=== PATIENT | female | born 1970 | race Caucasian/White ===

== ENCOUNTER → 2017-05-29 09:57 | Outpatient (CLI) | payer OTHER, SELFPAY ==
--- NOTE | 2017-05-29 09:59 | EKG12_ITS ---
Test Reason : CHEST PAIN Blood Pressure : / mmHG Vent. Rate : 082 BPM Atrial Rate : 082 BPM P-R Int : 146 ms QRS Dur : 082 ms QT Int : 370 ms P-R-T Axes : 050 015 009 degrees QTc Int : 432 ms Normal sinus rhythm Normal ECG Confirmed by ABDIRIZAK DAS MD ([id number]), editorial project manager SOFI SHAW ([id number] on 06/01/2017 1:49:01 PM Referred By: Susi Booth Confirmed By:ABDIRIZAK DAS MD
[2017-05-29 11:56] LABS: Hematocrit 42.6 % (37-47); Hemoglobin 13.6 g/dl (12.0-15.0); Mean Corp Hgb Conc 31.9 g/gl (32-36); Mean Corpuscular Hgb 29.2 pg (27.0-32.0); Mean Corpuscular Volume 91.6 fL (81-99); Mean Platelet Vol. 9.3 fl (6.2-12.0); Platelet Count 377 K/mm3 (150-450); RBC Distribution Width CV 13.3 % (11.6-14.6); RBC Distribution Width SD 43.7 fl (35.1-43.9); Red Blood Count 4.65 M/mm3 (4.2-5.4); White Blood Count 7.1 K/mm3 (4.4-11.0)
[2017-05-29 11:58] LABS: Scan Indicated on CBC? Y/N NO
[2017-05-29 12:32] LABS: ALB/GLOB Ratio 0.8 RATIO (0.9-2.4); AST(SGOT) 14 U/L (15-37); Alanine Aminotransfer ALT/SGPT 24 U/L (13-56); Albumin, Serum 3.7 g/dL (3.2-5.0); Alkaline Phosphatase 92 U/L (45-117); Anion Gap 6 (5-15); BUN 8 mg/dL (7-18); BUN/Creat Ratio 10.3 RATIO (10-20); Calcium,Total 8.8 mg/dL (8.5-10.1); Chloride 102 mmol/L (98-107); Creatinine, Serum 0.78 mg/dL (0.55-1.02); EST Glomerular Filtration Rate 84 mL/min (>60); Est Glom Filt Rate - Afr Amer 102 mL/min (>60); Globulin 4.5 g/dL (2.2-4.2); Glucose 87 mg/dL (74-106); Potassium 3.8 mmol/L (3.5-5.1); Protein, Total 8.2 g/dL (6.4-8.2); Sodium Level 138 mmol/L (136-145)
== END ==
PROVIDERS: Family Provider Nurse Practitioner Family; PCP Nurse Practitioner Family; Visit Provider Nurse Practitioner Family
DX: R07.9 Chest pain, unspecified (principal)
CPT/HCPCS: 36415; 80053; 84484; 85027; 93005

== ENCOUNTER → 2017-06-25 11:27 | Outpatient (CLI) | payer OTHER, SELFPAY ==
--- NOTE | 2017-06-25 12:40 | STRESSREP ---
Stress Test Report Treadmill EKG: Resting EKG: Normal sinus rhythm, normal axis, normal intervals, no evidence of previous myocardial infarction. Treadmill EKG: The patient exercise according to Prashanth protocol for 9 minutes and 0 seconds achieving a maximum workload of 10.1 METS. Resting heart rate was initially 76 beats a minute peri to maximum 162 beats a minute which represents 93% of the maximal age-predicted heart rate. Resting blood pressure is 118/80, and peri to maximum of 160/68. Test was terminated due to leg discomfort. During exercise patient's heart rate increased as expected. Patient had no dynamic EKG changes to suggest ischemia. No arrhythmias noted. Conclusions: Normal adequate treadmill EKG. Negative for ischemia by EKG criteria. No anginal symptoms noted. No arrhythmias noted. Average exercise capacity for age. Appropriate blood pressure response to exercise. Test terminated due to leg discomfort. No complications.
== END ==
PROVIDERS: Family Provider Nurse Practitioner Family; PCP Nurse Practitioner Family; Visit Provider Nurse Practitioner Family
DX: R07.9 Chest pain, unspecified (principal)
CPT/HCPCS: 93017

== ENCOUNTER → 2018-04-09 08:07 | Outpatient (CLI) | payer OTHER, SELFPAY ==
[2018-04-09 10:14] LABS: Hematocrit 41.6 % (37-47); Hemoglobin 13.5 g/dl (12.0-15.0); Mean Corp Hgb Conc 32.5 g/gl (32-36); Mean Corpuscular Hgb 30.2 pg (27.0-32.0); Mean Corpuscular Volume 93.1 fL (81-99); Platelet Count 307 K/mm3 (150-450); RBC Distribution Width CV 13.6 % (11.6-14.6); RBC Distribution Width SD 45.2 fl (35.1-43.9); Red Blood Count 4.47 M/mm3 (4.2-5.4); White Blood Count 5.7 K/mm3 (4.4-11.0)
[2018-04-09 10:18] LABS: Scan Indicated on CBC? Y/N NO
[2018-04-09 10:33] LABS: ALB/GLOB Ratio 0.9 RATIO (0.9-2.4); AST(SGOT) 16 U/L (15-37); Alanine Aminotransfer ALT/SGPT 29 U/L (13-56); Albumin, Serum 3.5 g/dL (3.2-5.0); Alkaline Phosphatase 73 U/L (45-117); Anion Gap 10 (5-15); BUN 13 mg/dL (7-18); BUN/Creat Ratio 17.3 RATIO (10-20); Chloride 105 mmol/L (98-107); Cholesterol 223 mg/dL (200); Creatinine, Serum 0.75 mg/dL (0.55-1.02); EST Glomerular Filtration Rate 87 mL/min (>60); Est Glom Filt Rate - Afr Amer 106 mL/min (>60); Globulin 4.1 g/dL (2.2-4.2); Glucose 90 mg/dL (74-106); High Density Lipoprotein 68 mg/dL; Potassium 4.3 mmol/L (3.5-5.1); Protein, Total 7.6 g/dL (6.4-8.2); Sodium Level 141 mmol/L (136-145); Triglycerides 105 mg/dL; Very Low Density Lipoprotein 21 mg/dL (5-40)
== END ==
PROVIDERS: Family Provider Nurse Practitioner Family; PCP Nurse Practitioner Family; Referring Provider Nurse Practitioner Family; Visit Provider Nurse Practitioner Family
DX: E78.5 Hyperlipidemia, unspecified (principal); I10 Essential (primary) hypertension
CPT/HCPCS: 36415; 80053; 80061; 85027

== ENCOUNTER → 2019-02-26 09:08 | Outpatient (CLI) | payer OTHER, SELFPAY ==
[2019-02-26 10:35] LABS: Hematocrit 39.6 % (37-47); Hemoglobin 12.8 g/dL (12.0-15.0); Mean Corp Hgb Conc 32.3 g/dL (32-36); Mean Corpuscular Hgb 29.8 pg (27.0-32.0); Mean Corpuscular Volume 92.1 fL (81-99); Mean Platelet Vol. 10.1 fl (6.2-12.0); Platelet Count 289 K/mm3 (150-450); RBC Distribution Width CV 12.6 % (11.6-14.6); RBC Distribution Width SD 42.6 fl (35.1-43.9); White Blood Count 5.9 K/mm3 (4.4-11.0)
[2019-02-26 11:07] LABS: ALB/GLOB Ratio 0.9 RATIO (0.9-2.4); AST(SGOT) 15 U/L (15-37); Alanine Aminotransfer ALT/SGPT 20 U/L (13-56); Albumin, Serum 3.4 g/dL (3.2-5.0); Alkaline Phosphatase 78 U/L (45-117); Anion Gap 5 (5-15); BUN 11 mg/dL (7-18); BUN/Creat Ratio 14.3 RATIO (10-20); Calcium,Total 9.1 mg/dL (8.5-10.1); Chloride 110 mmol/L (98-107); Cholesterol 214 mg/dL (200); Creatinine, Serum 0.77 mg/dL (0.55-1.02); EST Glomerular Filtration Rate 85 mL/min (>60); Est Glom Filt Rate - Afr Amer 103 mL/min (>60); Globulin 3.9 g/dL (2.2-4.2); Glucose 79 mg/dL (74-106); High Density Lipoprotein 63 mg/dL; Potassium 4.2 mmol/L (3.5-5.1); Protein, Total 7.3 g/dL (6.4-8.2); Sodium Level 143 mmol/L (136-145); Triglycerides 135 mg/dL; Very Low Density Lipoprotein 27 mg/dL (5-40)
== END ==
PROVIDERS: Family Provider Nurse Practitioner Family; PCP Nurse Practitioner Family; Referring Provider Nurse Practitioner Family; Visit Provider Nurse Practitioner Family
DX: Z00.00 Encounter for general adult medical examination without abnormal findings (principal); I10 Essential (primary) hypertension; E66.9 Obesity, unspecified; E78.5 Hyperlipidemia, unspecified
CPT/HCPCS: 36415; 80053; 80061; 85027

== ENCOUNTER → 2020-03-17 09:42 | Outpatient (CLI) | payer OTHER, SELFPAY ==
[2020-03-17 10:12] LABS: Hematocrit 41.3 % (37-47); Hemoglobin 13.1 g/dL (12.0-15.0); Mean Corp Hgb Conc 31.7 g/dL (32-36); Mean Corpuscular Hgb 29.2 pg (27.0-32.0); Mean Platelet Vol. 9.4 fl (6.2-12.0); Platelet Count 308 K/mm3 (150-450); RBC Distribution Width SD 44.2 fl (35.1-43.9); Red Blood Count 4.49 M/mm3 (4.2-5.4); White Blood Count 5.3 K/mm3 (4.4-11.0)
[2020-03-17 10:50] LABS: ALB/GLOB Ratio 0.9 RATIO (0.9-2.4); AST(SGOT) 15 U/L (15-37); Alanine Aminotransfer ALT/SGPT 25 U/L (13-56); Albumin, Serum 3.8 g/dL (3.2-5.0); Alkaline Phosphatase 107 U/L (45-117); Anion Gap 4 (5-15); BUN 11 mg/dL (7-18); BUN/Creat Ratio 14.3 RATIO (10-20); Chloride 108 mmol/L (98-107); Cholesterol 245 mg/dL (200); Creatinine, Serum 0.77 mg/dL (0.55-1.02); EST Glomerular Filtration Rate 84 mL/min (>60); Est Glom Filt Rate - Afr Amer 102 mL/min (>60); Globulin 4.2 g/dL (2.2-4.2); Glucose 84 mg/dL (74-106); High Density Lipoprotein 82 mg/dL; Potassium 4.3 mmol/L (3.5-5.1); Sodium Level 142 mmol/L (136-145); Triglycerides 116 mg/dL; Very Low Density Lipoprotein 23 mg/dL (5-40)
== END ==
PROVIDERS: PCP Nurse Practitioner Family; Referring Provider Nurse Practitioner Family; Visit Provider Nurse Practitioner Family
DX: Z00.00 Encounter for general adult medical examination without abnormal findings (principal); I10 Essential (primary) hypertension; E66.9 Obesity, unspecified
CPT/HCPCS: 36415; 80053; 80061; 85027

== ENCOUNTER → 2021-01-15 12:12 | Outpatient (CLI) | payer OTHER, SELFPAY ==
--- NOTE | 2021-01-15 12:15 | RAD_ITS ---
STUDY: X-RAY - RIGHT KNEE REASON FOR EXAM: Anterior right knee pain, strain. TECHNIQUE: 4 view(s) of the knee. COMPARISON: None. FINDINGS: There is osteopenia. Normal visualized distal femur. Normal visualized proximal tibia and fibula. Normal proximal tibiofibular articulation. Normal medial femorotibial compartment. Normal lateral femorotibial compartment. There is mild joint space narrowing of the patellofemoral articulation. The soft tissue structures are unremarkable. RAD/Knee 4 or More Views IMPRESSION: Mild patellofemoral arthrosis. Electronically Signed: Alden He MD at 13:52 EST Tel , Service support ,
== END ==
PROVIDERS: PCP Nurse Practitioner Family; Referring Provider Nurse Practitioner Family; Visit Provider Nurse Practitioner Family
DX: M25.561 Pain in right knee (principal)
CPT/HCPCS: 73564

== ENCOUNTER → 2021-02-05 15:30 | Outpatient (CLI) | payer OTHER, SELFPAY ==
--- NOTE | 2021-02-05 15:31 | MRI_ITS ---
STUDY: MRI RIGHT KNEE REASON FOR EXAM: Female, 50 years old. Very limited range of motion in right knee x 1.5 months. Stabbing pain along lateral side of right knee. TECHNIQUE: Standardized fat and water weighted pulse sequences were obtained in all 3 orthogonal planes. COMPARISON: Right knee x-ray dated January 13, 2021 FINDINGS: Normal medial meniscus. There is diffuse, less than 50% thickness articular cartilage loss of the medial femorotibial compartment. Normal medial femoral condyle and tibial plateau. Normal medial collateral ligamentous complex (MCL). Normal distal semimembranosus, gracilis and semitendinosus tendons. Normal lateral meniscus. Normal hyaline cartilage of the lateral femorotibial compartment. Normal lateral tibial plateau. Normal proximal tibiofibular articulation. Normal lateral collateral (fibular) ligament. Normal popliteus tendon. Normal biceps femoris tendon. Normal anterior cruciate ligament (ACL). Normal posterior cruciate ligament (PCL). Normal congruent patellofemoral articulation. Normal hyaline cartilage of the patellofemoral compartment. Normal medial and lateral patellar retinaculum. Normal quadriceps tendon. Normal patellar tendon. Normal Hoffa''s fat pad. A small joint effusion is present. Multiple varicose veins are seen on the lateral side of the distal thigh. Mild subcutaneous edema is present. Mild to moderate edema is present in the lateral femoral condyle either due to trauma or spontaneous osteonecrosis. No serpiginous signal or fracture is seen. A small osteochondral defect is present at the periphery of the lateral femoral condyle measuring 0.68 cm. Mild strain edema is also present in the overlying lateral head of the gastrocnemius muscle. Mild strain edema is also present in the vastus lateralis muscle fibers. . The otherwise visualized osseous structures are unremarkable. MRI/Lower Ext Joint Only (Routine) IMPRESSION: 1. A small joint effusion is present. Multiple varicose veins are seen on the lateral side of the distal thigh. Mild subcutaneous edema is present. Mild to moderate edema is present in the lateral femoral condyle either due to trauma or spontaneous osteonecrosis. No serpiginous signal or fracture is seen. 2. A small osteochondral defect is present at the periphery of the lateral femoral condyle measuring 0.68 cm. 3. Mild strain edema is also present in the overlying lateral head of the gastrocnemius muscle. 4. Mild strain edema is also present in the vastus lateralis muscle fibers. Electronically Signed: Collins Coello MD at 23:24 EST , Service support ,
== END ==
PROVIDERS: PCP Nurse Practitioner Family; Visit Provider Physician Assistant
DX: M25.561 Pain in right knee (principal); S89.91XA Unspecified injury of right lower leg, initial encounter
CPT/HCPCS: 73721

== ENCOUNTER 2021-04-25 14:07 | Outpatient (CLI) | payer OTHER, SELFPAY ==
[2021-04-25 14:39] LABS: D-Dimer Quantitative (DVT/PE) 0.48 FEU/ug/m (0.27-0.49)
== END 2021-04-25 23:59 | disposition home or self-care (01) ==
PROVIDERS: PCP Nurse Practitioner Family; Referring Provider Nurse Practitioner Family; Visit Provider Nurse Practitioner Family
DX: M79.669 Pain in unspecified lower leg (principal)
CPT/HCPCS: 36415; 85379

== ENCOUNTER 2021-05-06 15:30 | Outpatient (RCR) | payer OTHER, SELFPAY ==
--- NOTE | 2021-04-16 11:00 | HP.PTEVAL ---
Patient's Visit Information YAEL JOHNSON is a 50 year old F referred to Physical Therapy by JUICE Pruitt with a diagnosis of Osteochondral defect of lateral femoral condyle, strain of vastas lateralis. Date of Evaluation: 04/16/21 Physical Therapist: JOSIAH Tan - Visit Plan Frequency: 2-3x /Week Duration: 6 Weeks Plan: 2-3X/ week for 6 weeks for decrease inflammation (bike etc encourage several times a day), knee AROM, stretching of the HS and Quad on the L, hip and knee strengthening L, OHS mechanics, gait training with HEP. HEP: QS, Supine hip flexor stretch, heel slides, SLR, S/L hip abd bike freq - Subjective Pt injured her R knee and not sure how. Walking and running on TM slowly made it worse. Nothing is torn on MRI. She has 2 holes in the bone and deep bruising. She is on Bike and TM (walking) and not getting her strength back. It hurts (dull ache) if she walks a lot. 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 Eventully wants to get off the brace. He said looking at 2 months before she can be completely healed. Squating hurts. She has a lot of crepitus in the knee. Stairs: they are fine. Her carries the laundry. and she goes up and down the steps recip with a railing. She is sleeping ok but stiffens up at night. She slowly moves it and then she can roll over. She wakes up 4-5X/ night. - Pain R knee pain Pain Intensity (Out of 10): 0 Pain Intensity Range: 5 - Objective Gait: walks with decrease stance on the R leg, antalgic gait. LE MMT: R hip flex 4-/5, L hip flex 4/5, R knee ext 3-/5 and L 4/5, R knee flex 4-/5 and L 4/5, R hip abd 4-/5 and L 4/5, Prone hip ext 3-/5 B. R knee AROM -4 degrees extension and R knee flexion 126 degrees. L knee flexion -1 degree to 137 degrees knee flexion. Palpation: tender medial joint line and HS insertion posterior. Pt is able to walk on toes but does not walk on heels as it increases her posterior knee pain. Pt can squat but she has audible crepitus and increase discomfort - Balance/Special Test Scores Lower Extremity Functional Score: 60 - Goals Goal 1:: I HEP Goal Time Frame: 4-6 Weeks Goal 2:: Increase L hip and knee strength by 1/2 muscle grade (at time of eval: LE MMT: R hip flex 4-/5, L hip flex 4/5, R knee ext 3-/5 and L 4/5, R knee flex 4-/5 and L 4/5, R hip abd 4-/5 and L 4/5, Prone hip ext 3-/5 B). Goal Time Frame: 4-6 Weeks Goal 3:: Increase R knee AROM 0-125 degrees Goal Time Frame: 4-6 Weeks Goal 4:: Be able to OHS with proper mechanics without pain Goal Time Frame: 4-6 Weeks - Rehabilitation Potential Rehabilitation Potential: Good - Anticipated Interventions Patient/Client Instruction: Educate patient on: Condition, Plan of Care For the Purpose of:: To decrease pain, To decrease swelling/inflammation, To increase ROM, To improve nutrient delivery to tissue, To improve muscle performance and motor function, To improve ability to perform ADL's, To increase tolerance to activity/condition/position, To improve performance and independence with ADL's, To decrease level of supervision to perform tasks, To improve ability of physical actions for home/community/work/leisure, To improve gait and locomotor functions, To improve health of tissue, To decrease soft tissue restriction, To increase flexibility/ROM, To improve balance Therapeutic Exercise to Include: Strength training, Flexibilty training, Gait and locomotor training, Passive ROM, Active ROM, Dynamic Lumbar Stabilization For the Purpose of:: To decrease pain, To decrease swelling/inflammation, To increase ROM, To improve nutrient delivery to tissue, To improve muscle performance and motor function, To improve ability to perform ADL's, To increase tolerance to activity/condition/position, To improve performance and independence with ADL's, To improve ability of physical actions for home/community/work/leisure, To improve gait and locomotor functions, To improve health of tissue, To decrease soft tissue restriction, To increase flexibility/ROM Functional Training to Include: Gait training For the Purpose of:: To improve gait and locomotor functions Manual Therapy Techniques to Include: Passive ROM, Soft tissue mobilization For the Purpose of:: To increase ROM, To improve nutrient delivery to tissue IF ES: Yes Cryotherapy (ice pack, ice massage): Yes Thermo therapy (hot pack): Yes Ultrasound (thermal/non thermal): Yes For the Purpose of:: To decrease pain, To decrease swelling/inflammation, To increase ROM, To improve nutrient delivery to tissue Thank you for the opportunity to evaluate your patient. For Medicare and Medicare HMO plans, please review the plan of care and approve it. It will need to be FAXED BACK to us at [phone] for Medicare purposes. For Medicare only, by signing this I certify the plan of care. Please let me know if there are questions or concerns regarding this plan of care. Physician Signature: Date:
--- NOTE | 2021-05-06 16:06 | HP.PTREVAL ---
JUICE Pruitt, It has been my pleasure to treat YAEL JOHNSON over the last 8 visits for Osteochondral defect of lateral femoral condyle, strain of vastas lateralis. Please see the progress note below for an update on the physical therapy plan of care! Subjective: Pt sees Pradeep on Wed. She wants to take some measurements. She feels that she is getting stronger and ROM is better but the swelling remains. Pain on the inside of the R knee and knee cap today. She is biking and walking on TM (no running....4.0-4.5mph). Objective/Function: -1 degree and 134 degrees R knee flexion. Pt swelling remains medially and below the medial joint line. OHS form is much better with equal weight shift. Prone hip ext 4/5, hip abd 4+/5, hip flex 4/5. Pt can walk on heels and toes without issue Plan Plan: 2-3X/ week for 6 weeks for decrease inflammation (bike etc encourage several times a day), knee AROM, stretching of the HS and Quad on the L, hip and knee strengthening L, OHS mechanics, gait training with HEP. HEP: QS, Supine hip flexor stretch, heel slides, SLR, S/L hip abd bike freq Balance/Gait/Functional tests - Balance/Special Test Scores Lower Extremity Functional Score: 64 Goals Goal 1:: I HEP Goal Time Frame: 4-6 Weeks Goal Progress: Goal Met Goal 2:: Increase L hip and knee strength by 1/2 muscle grade (at time of eval: LE MMT: R hip flex 4-/5, L hip flex 4/5, R knee ext 3-/5 and L 4/5, R knee flex 4-/5 and L 4/5, R hip abd 4-/5 and L 4/5, Prone hip ext 3-/5 B). Goal Time Frame: 4-6 Weeks Goal Progress: Goal Met Goal 3:: Increase R knee AROM 0-125 degrees Goal Time Frame: 4-6 Weeks Goal Progress: Goal Met Goal 4:: Be able to OHS with proper mechanics without pain Goal Time Frame: 4-6 Weeks Goal Progress: Progressing Anticipated Interventions Patient/Client Instruction: Educate patient on: Condition, Plan of Care For the Purpose of:: To decrease pain, To decrease swelling/inflammation, To increase ROM, To improve nutrient delivery to tissue, To improve muscle performance and motor function, To improve ability to perform ADL's, To increase tolerance to activity/condition/position, To improve performance and independence with ADL's, To decrease level of supervision to perform tasks, To improve ability of physical actions for home/community/work/leisure, To improve gait and locomotor functions, To improve health of tissue, To decrease soft tissue restriction, To increase flexibility/ROM, To improve balance Therapeutic Exercise to Include: Strength training, Flexibilty training, Gait and locomotor training, Passive ROM, Active ROM, Dynamic Lumbar Stabilization For the Purpose of:: To decrease pain, To decrease swelling/inflammation, To increase ROM, To improve nutrient delivery to tissue, To improve muscle performance and motor function, To improve ability to perform ADL's, To increase tolerance to activity/condition/position, To improve performance and independence with ADL's, To improve ability of physical actions for home/community/work/leisure, To improve gait and locomotor functions, To improve health of tissue, To decrease soft tissue restriction, To increase flexibility/ROM Functional Training to Include: Gait training For the Purpose of:: To improve gait and locomotor functions Manual Therapy Techniques to Include: Passive ROM, Soft tissue mobilization For the Purpose of:: To increase ROM, To improve nutrient delivery to tissue IF ES: Yes Cryotherapy (ice pack, ice massage): Yes Thermo therapy (hot pack): Yes Ultrasound (thermal/non thermal): Yes For the Purpose of:: To decrease pain, To decrease swelling/inflammation, To increase ROM, To improve nutrient delivery to tissue Please do not hesitate to contact me at [phone] by phone or if you have questions or concerns regarding this new plan of care! Sincerely, JOSIAH Tan
== END 2021-05-06 19:00 | disposition home or self-care (01) ==
LOC: PT 15:30
PROVIDERS: PCP Nurse Practitioner Family; Referring Provider Physician Assistant; Visit Provider Physician Assistant
DX: S76.919D Strain of unspecified muscles, fascia and tendons at thigh level, unspecified thigh, subsequent encounter (principal); M95.8 Other specified acquired deformities of musculoskeletal system
CPT/HCPCS: 97016; 97110; 97161; 97530

== ENCOUNTER 2021-06-08 09:46 | Outpatient (CLI) | payer OTHER, SELFPAY ==
[2021-06-08 10:38] LABS: Hematocrit 40.8 % (37-47); Hemoglobin 13.3 g/dL (12.0-15.0); Mean Corp Hgb Conc 32.6 g/dL (32-36); Mean Corpuscular Hgb 29.6 pg (27.0-32.0); Mean Corpuscular Volume 90.9 fL (81-99); Mean Platelet Vol. 9.5 fl (6.2-12.0); Platelet Count 288 K/mm3 (150-450); RBC Distribution Width SD 43.8 fl (35.1-43.9); Red Blood Count 4.49 M/mm3 (4.2-5.4); White Blood Count 6.2 K/mm3 (4.4-11.0)
[2021-06-08 11:15] LABS: ALB/GLOB Ratio 0.9 RATIO (0.9-2.4); AST(SGOT) 17 U/L (15-37); Alanine Aminotransfer ALT/SGPT 28 U/L (13-56); Albumin, Serum 3.5 g/dL (3.2-5.0); Alkaline Phosphatase 99 U/L (45-117); Anion Gap 2 (5-15); BUN 10 mg/dL (7-18); BUN/Creat Ratio 14.3 RATIO (10-20); Calcium,Total 9.1 mg/dL (8.5-10.1); Chloride 110 mmol/L (98-107); Cholesterol 192 mg/dL (200); EST Glomerular Filtration Rate 94 mL/min (>60); Est Glom Filt Rate - Afr Amer 114 mL/min (>60); Globulin 4.1 g/dL (2.2-4.2); Glucose 92 mg/dL (74-106); High Density Lipoprotein 84 mg/dL; Potassium 4.8 mmol/L (3.5-5.1); Protein, Total 7.6 g/dL (6.4-8.2); Sodium Level 142 mmol/L (136-145); Triglycerides 70 mg/dL; Very Low Density Lipoprotein 14 mg/dL (5-40)
== END 2021-06-08 23:59 | disposition home or self-care (01) ==
LOC: LAB 09:47
PROVIDERS: PCP Nurse Practitioner Family; Visit Provider Nurse Practitioner Family
DX: Z00.00 Encounter for general adult medical examination without abnormal findings (principal); I10 Essential (primary) hypertension; E66.9 Obesity, unspecified
CPT/HCPCS: 36415; 80053; 80061; 85027

== ENCOUNTER 2021-08-01 14:13 | Outpatient (RCR) | payer OTHER, SELFPAY | END 2021-08-01 14:13 | disposition home or self-care (01) | LOC: PT 14:13 | PROVIDERS: PCP Nurse Practitioner Family; Visit Provider Nurse Practitioner Family | DX: R69 Illness, unspecified (principal) ==

== ENCOUNTER → 2021-09-03 | Outpatient (CLI) | payer OTHER, SELFPAY ==
--- NOTE | 2021-09-03 17:56 | MRI_ITS ---
EXAM: MR HEAD WITHOUT AND WITH INTRAVENOUS CONTRAST CLINICAL INDICATION: Impaired smell sensation, headaches, sinus congestion, tinnitus TECHNIQUE: Multiplanar and multisequence MR images of the brain were obtained without and with intravenous contrast. This report was created using [employer] report generation technology. CONTRAST: IV 15cc dotarem COMPARISON: None. FINDINGS: BRAIN AND EXTRA-AXIAL SPACES: Unremarkable. No intra- or extra-axial hemorrhage. No evidence of acute infarct. No intracranial mass or mass effect. There is preservation of the sanders/white matter interface. Posterior fossa structures are unremarkable. Ventricles are appropriate for age. No hydrocephalus. Basal cisterns are patent. SELLA: Unremarkable. Normal sella turcica, pituitary gland, infundibular stalk, optic chiasm and hypothalamus. AUDITORY SYSTEM: Unremarkable. The internal auditory canals are patent. BONES/JOINTS: Unremarkable. No discrete lytic or blastic abnormalities. SINUSES: Unremarkable as visualized. Clear. MASTOID AIR CELLS: Unremarkable as visualized. Clear. ORBITS: Unremarkable as visualized. Both globes, extraocular muscles, optic nerves and retrobulbar fat appear unremarkable. VASCULATURE: Unremarkable as visualized. Normal flow voids in the major intracranial circulation. MRI/Brain W/WO Contrast IMPRESSION: Normal MRI brain without and with intravenous contrast. Electronically Signed: Don Funk MD at 9:03 EDT ,
== END | disposition home or self-care (01) ==
LOC: MRI 17:56
PROVIDERS: PCP Nurse Practitioner Family; Referring Provider Psychiatry & Neurology Neurology; Visit Provider Psychiatry & Neurology Neurology
DX: R20.2 Paresthesia of skin (principal); G44.209 Tension-type headache, unspecified, not intractable; R43.8 Other disturbances of smell and taste; J32.9 Chronic sinusitis, unspecified
CPT/HCPCS: 70553; A9575

== ENCOUNTER 2022-01-20 08:06 | Emergency (ER) | payer OTHER, SELFPAY ==
[2022-01-20 08:07] VITALS: BP 153/89; PULSE 70; RESP 14; TEMP 36.2; O2SAT 100; BMI 32.7
--- NOTE | 2022-01-20 08:38 | EKG12_ITS ---
Test Reason : HYPERTEN Blood Pressure : / mmHG Vent. Rate : 076 BPM Atrial Rate : 076 BPM P-R Int : 160 ms QRS Dur : 078 ms QT Int : 384 ms P-R-T Axes : 050 008 -02 degrees QTc Int : 432 ms Normal sinus rhythm Normal ECG Confirmed by PIPPA KEY, ABDIRIZAK ([id number]), editorial assistant WEN MOULTON ([id number]) on 01/21/2022 8:26:46 AM Referred By: Confirmed By:ABDIRIZAK DAS MD
--- NOTE | 2022-01-20 08:38 | CT_ITS ---
EXAM: CT ANGIOGRAPHY HEAD AND NECK WITH INTRAVENOUS CONTRAST CLINICAL INDICATION: HTN, dizziness TECHNIQUE: [place] [facility] [place]/head and neck CT angiography protocol performed with intravenous contrast. This CT exam was performed using one or more of the following dose reduction techniques: automated exposure control, adjustment of the mA and/or kV according to patient size, and/or use of iterative reconstruction technique. This report was created using [employer] report generation technology. MIP reconstructed images were created and reviewed. CONTRAST: IV 100mL [id number] COMPARISON: None. FINDINGS: HEAD: RIGHT ANTERIOR CEREBRAL ARTERY: Normal. No significant stenosis at the visualized segments. Anterior communicating artery is not identified. No aneurysm. RIGHT MIDDLE CEREBRAL ARTERY: Normal. No significant stenosis at the visualized segments. No aneurysm. RIGHT POSTERIOR CEREBRAL ARTERY: Normal. No occlusion or significant stenosis. No aneurysm. RIGHT INTRACRANIAL INTERNAL CAROTID ARTERY: Normal. No significant stenosis. No dissection or occlusion. RIGHT INTRACRANIAL VERTEBRAL ARTERY: Normal. No significant stenosis. No dissection or occlusion. LEFT ANTERIOR CEREBRAL ARTERY: Normal. No significant stenosis at the visualized segments. No aneurysm. LEFT MIDDLE CEREBRAL ARTERY: Normal. No significant stenosis at the visualized segments. No aneurysm. LEFT POSTERIOR CEREBRAL ARTERY: Normal. No occlusion or significant stenosis. No aneurysm. LEFT INTRACRANIAL INTERNAL CAROTID ARTERY: Normal. No significant stenosis. No dissection or occlusion. LEFT INTRACRANIAL VERTEBRAL ARTERY: Normal. No significant stenosis. No dissection or occlusion. BASILAR ARTERY: Normal. No significant stenosis. No aneurysm. OTHER VASCULATURE: No vascular malformation. NECK: RIGHT COMMON CAROTID ARTERY: Normal. No significant stenosis. No dissection or occlusion. RIGHT EXTRACRANIAL INTERNAL CAROTID ARTERY: Normal. No significant stenosis. No dissection or occlusion. RIGHT EXTERNAL CAROTID ARTERY: Normal. No occlusion. RIGHT EXTRACRANIAL VERTEBRAL ARTERY: Normal. No significant stenosis. No dissection or occlusion. LEFT COMMON CAROTID ARTERY: Normal. No significant stenosis. No dissection or occlusion. LEFT EXTRACRANIAL INTERNAL CAROTID ARTERY: Soft plaquing at the origin results in approximately 50% stenosis. No dissection or occlusion. LEFT EXTERNAL CAROTID ARTERY: Normal. No occlusion. LEFT EXTRACRANIAL VERTEBRAL ARTERY: Normal. No significant stenosis. No dissection or occlusion. GREAT VESSELS OF AORTIC ARCH: Unremarkable as visualized. Normal anatomy, patent. LUNG APICES: Unremarkable as visualized. HEAD and NECK: BONES/JOINTS: Normal. No discrete lytic or blastic abnormalities. SOFT TISSUES: Normal. CAROTID STENOSIS REFERENCE USING NASCET CRITERIA: % ICA stenosis = (1 - narrowest ICA diameter/diameter of distal cervical ICA) x 100. Mild - <50% stenosis. Moderate - 50-69% stenosis. Severe - 70-94% stenosis. Near occlusion - 95-99% stenosis. Occluded - 100% stenosis. CT/CTA Head AND Neck W/ Contrast IMPRESSION: 50% stenosis of the origin of the left internal carotid artery related to soft plaquing. No intracranial abnormality. Electronically Signed: Don Funk MD at 10:21 EST ,
--- NOTE | 2022-01-20 08:38 | RAD_ITS ---
EXAM: XR CHEST, 2 VIEWS CLINICAL INDICATION: htn TECHNIQUE: Frontal and lateral views of the chest. This report was created using [employer] report generation technology. COMPARISON: None. FINDINGS: LUNGS AND PLEURAL SPACES: Normal. No consolidation or edema. No pneumothorax. No effusion. HEART: Normal heart size. MEDIASTINUM: No mediastinal or hilar mass. BONES/JOINTS: No acute abnormality. SOFT TISSUES: Normal. RAD/Chest PA and Lateral IMPRESSION: No acute cardiopulmonary disease. Electronically Signed: Don Funk MD at 10:13 EST ,
--- NOTE | 2022-01-20 08:39 | EX.ED.DYSGE1 ---
HPI History of Present Illness Chief Complaint: Hypertension Informant: patient Onset/Context/Timing Onset: Days Narrative Narrative: Present secondary to hypertension. She has a history of hypertension and is on losartan 50 mg daily. Patient states her systolic blood pressure is normally 119. This was last checked in late November at a neurology evaluation. Thursday evening she states she felt like something just was not quite right. She had a slight pressure in her head and chest. She took her blood pressure and it was 186 systolic. She states her diastolic pressure never got over 100. Yesterday her systolic blood pressure was up to 165. Today's been staying in the upper 150s. She has intermittent episodes of headache and dizziness. She has no syncope. She has no chest pain currently. [facility] Medical History High cholesterol HTN (hypertension) Seasonal allergies Home Medications multivitamin 1 tab PO DAILY 01/21/21 [History Last Taken Unknown] loratadine 10 mg tablet 10 mg PO DAILY PRN seasonal allergies 01/20/22 [History Last Taken Unknown] losartan 50 mg tablet 50 mg PO DAILY 01/20/22 [History Last Taken Unknown] Allergy/AdvReac Type Severity Reaction Status Date / Time No Known Allergies Allergy Verified 01/20/22 08:07 Family History Father Heart disease Surgical History Hx of breast reduction, elective No history of previous surgery Social History Smoking Status: Never smoker alcohol intake: current details: 2-3 daily substance use type: does not use what type of physical activity do you participate in: other frequency: 3-4 times per week ROS ROS ED Constitutional Constitutional ED: Denies chills or fever(s) Eyes Eyes: Denies change in vision or discharge from eye(s) ENT ENT ED: Denies discharge from eye(s), rhinorrhea or sore throat Cardiovascular Cardiovascular: Denies palpitations Respiratory/Chest Respiratory/Chest: Denies cough or dyspnea Gastrointestinal Gastrointestinal: Reports nausea; Denies abdominal pain, diarrhea or vomiting Genitourinary Genitourinary ED: Denies difficulty urinating or dysuria Musculoskeletal Musculoskeletal: Denies back pain or extremity pain Integumentary Denies Abrasions or rash Neurologic Neurologic: Reports headache(s); Denies weakness Allergic/Immunologic Allergic/Immunologic ED: Denies lip swelling or urticaria EXAM Physical Exam Const Vital Signs: 01/20/22 08:07 01/20/22 09:13 01/20/22 09:13 Temperature 97.1 F L Temperature Source Temporal Pulse Rate 70 69 Respiratory Rate 14 15 Respiratory Effort Normal Non-Labored Respiratory Pattern Normal Blood Pressure 153/89 H 115/89 H Blood Pressure Mean 110 97 Pulse Ox 100 98 Oxygen Delivery Method Room Air Room Air 01/20/22 11:00 Temperature Temperature Source Pulse Rate 74 Respiratory Rate 18 Respiratory Effort Respiratory Pattern Blood Pressure 136/72 H Blood Pressure Mean 93 Pulse Ox 95 Oxygen Delivery Method Room Air Positive well nourished and well developed General Appearance ED: well developed HEENT Reports normocephalic and head/scalp atraumatic Eyes PERRL and EOMs intact bilaterally Neck supple Chest Wall inspection of chest normal and palpation of chest normal Resp normal respiratory effort and clear to auscultation bilaterally Cardio regular rate and regular rhythm GI normal to inspection, nondistended, normoactive bowel sounds Palpation: soft Extremity normal to inspection Neuro oriented x3 and no sensory deficits noted Sensorium / Orientation: alert Motor Exam: strength 5/5 throughout Psych mental status grossly normal Skin no rashes or lesions noted MDM MDM MDM Narrative Medical decision making narrative: 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 EKG, chest x-ray, lab work obtained. CTA of the head and neck obtained. Lab Data Attestation: I reviewed the patient's lab results. Labs: Laboratory Results - last 24 hr 01/20/22 01/20/22 09:15 09:15 WBC 5.0 RBC 4.35 Hgb 13.1 Hct 40.4 MCV 92.9 MCH 30.1 MCHC 32.4 RDW Std Deviation 43.9 RDW Coeff of Ani 12.9 Plt Count 276 MPV 9.6 Immature Gran % (Auto) 0.200 Neut % (Auto) 59.9 Lymph % (Auto) 29.3 [place] % (Auto) 6.8 Eos % (Auto) 2.6 Baso % (Auto) 1.2 H Absolute Neuts (auto) 3.0 Absolute Lymphs (auto) 1.47 Nucleated RBC % 0 Sodium 140 Potassium 3.8 Chloride 108 H Carbon Dioxide 28.0 Anion Gap 4 L BUN 9 Creatinine 0.64 Estim Creat Clear Calc 88.79 Est GFR (MDRD) Af Amer 124 Est GFR (MDRD) Non-Af 103 BUN/Creatinine Ratio 14.0 Glucose 99 Calcium 8.7 Radiography Diagnostic Testing: Clinical Impression(s) from Imaging Studies Chest X-Ray 01/20/22 08:38 IMPRESSION: No acute cardiopulmonary disease. Electronically Signed: Don Funk MD at 10:13 EST , Head/Neck CTA 01/20/22 08:38 IMPRESSION: 50% stenosis of the origin of the left internal carotid artery related to soft plaquing. No intracranial abnormality. Electronically Signed: Don Funk MD at 10:21 EST , EKG Initial EKG: Attestation: I personally reviewed and interpreted this EKG as follows: Interpretation: Sinus Rhythm (Sinus at 76 with no acute ischemia.) Treatment and Re-Evaluation Narrative: Repeat evaluation patient resting comfortably. Last 2 blood pressure readings have been 115 systolic and 136 systolic. This was without any intervention on my part. EKG is unremarkable. Lab work is normal. Chest x-ray per my interpretation reveals no focal infiltrate or abnormality. Radiology interpretation is reviewed. CTA of the head and neck reveals no acute findings. There is a 50% stenosis at the origin of the left internal carotid with soft plaque. Patient was made aware of this so she can follow-up and have routine screening to monitor any progression. She will call her PCP with blood pressure readings and any medication adjustments. 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 This will need to be followed with serial ultrasounds to monitor for any worsening. Please discuss this with your primary care doctor. Disposition Disposition: Home, Self Care
[2022-01-20 09:13] VITALS: BP 115/89; PULSE 69; RESP 15; O2SAT 98
[2022-01-20 09:32] LABS: Absolute Lymphocyte Count 1.47 X10^3/uL (0.83-4.51); Basophil# 0.06 X10^3/uL; Basophil% 1.2 % (0-1); Eosinophil# 0.13 X10^3/uL; Eosinophils% 2.6 % (0-5); Hematocrit 40.4 % (37-47); Hemoglobin 13.1 g/dL (12.0-15.0); Lymphocyte # 1.47 X10^3/ul (0.83-4.51); Lymphocyte % 29.3 % (19-41); Mean Corp Hgb Conc 32.4 g/dL (32-36); Mean Corpuscular Hgb 30.1 pg (27.0-32.0); Mean Corpuscular Volume 92.9 fL (81-99); Mean Platelet Vol. 9.6 fl (6.2-12.0); Monocyte# 0.34 X10^3/uL; Monocyte% 6.8 % (0-10); NRBC Flagged by Analyzer 0 % (0-5); Neutrophil # 3.01 X10^3/uL (2.7-7.7); Neutrophil % 59.9 % (47-70); Platelet Count 276 K/mm3 (150-450); RBC Distribution Width CV 12.9 % (11.6-14.6); RBC Distribution Width SD 43.9 fl (35.1-43.9); Red Blood Count 4.35 M/mm3 (4.2-5.4)
[2022-01-20 09:46] LABS: Anion Gap 4 (5-15); BUN 9 mg/dL (7-18); Calcium,Total 8.7 mg/dL (8.5-10.1); Chloride 108 mmol/L (98-107); Creatinine, Serum 0.64 mg/dL (0.55-1.02); EST Glomerular Filtration Rate 103 mL/min (>60); Est Glom Filt Rate - Afr Amer 124 mL/min (>60); Estimated Creatinine Clearance 88.79 ml/min; Glucose 99 mg/dL (74-106); Potassium 3.8 mmol/L (3.5-5.1); Sodium Level 140 mmol/L (136-145)
[2022-01-20 11:00] VITALS: BP 136/72; PULSE 74; RESP 18; O2SAT 95
== END 2022-01-20 12:13 | disposition home or self-care (01) ==
PROVIDERS: Emergency Provider Emergency Medicine; PCP Nurse Practitioner Family; Visit Provider Emergency Medicine
DX: I10 Essential (primary) hypertension (principal); Z79.899 Other long term (current) drug therapy
CPT/HCPCS: 70496; 70498; 71046; 80048; 85025; 93005; 99284; Q9967; A4216

== ENCOUNTER → 2022-02-14 | Outpatient (CLI) | payer OTHER, SELFPAY ==
[2022-02-14 10:20] LABS: Cholesterol 256 mg/dL (200); High Density Lipoprotein 75 mg/dL; Triglycerides 145 mg/dL; Very Low Density Lipoprotein 29 mg/dL (5-40)
== END | disposition home or self-care (01) ==
LOC: MTLAB 08:07
PROVIDERS: PCP Nurse Practitioner Family; Referring Provider Nurse Practitioner Family; Visit Provider Nurse Practitioner Family
DX: E78.5 Hyperlipidemia, unspecified (principal)
CPT/HCPCS: 36415; 80061

== ENCOUNTER 2022-06-19 15:30 | Outpatient (RCR) | payer BC, SELFPAY ==
--- NOTE | 2022-04-30 16:56 | HP.OTEVAL_ITS ---
Patient's Visit Information YAEL JOHNSON is a 51 year old F, referred to Occupational Therapy by KHARI Kern, with a diagnosis of right lat.ep. Date of Evaluation: 04/30/22 Occupational Therapist: Catia Wagner, OTR/Jaleesa, CHT - Subjective This 51 year old female was seen for OT eval with dx of right lateral epi. pt states she has had symptoms for over 2 months. 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 Pt has increase in pain with increase activity. pt would like to return to her PLOF. 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 left field artillery radar operator strength elbow straight 50# - Sensation Sensation Comments: bruning sensation down wrist - Special Tests Lat Epiconylitis - as named: positive - Goals Goal:: pt will demo a increase in right field artillery radar operator strength by 30# to increase pts ind. with ADls and IADls by d.c. pt will demo a right field artillery radar operator strength with elbow straight of 50# with no pain by d.c Goal:: pt will report pain no greater than 2/10 with use of ADls and IADLs by d.c Goal:: pt will demo understanding of using lateral epi precautions with ADLs and IADLs by d.c. Goal:: pt will demo understanding of using counterforce brace, wrist brace or use of kinesio tape to provide protection and support while healing. - Rehabilitation General Assessment: pt demo with symptoms consistent with right lateral Epicondylitis. pt is limited with all ADLs and IADLs at this time. Pt would benefit from skilled OT services 2-3x week for 4 weeks to decrease pain, strengthen UB and return pt to her PLOF. Today therapist ed. pt on POC and lateral epi. precautions. pt demo understanding and agree to POC. Rehabilitation Potential: Good - Anticipated Interventions Strengthening, Triggerpoint Release, Modalities, Orthoses, Joint Protection/Energy Conservation, Ergonomic Education, Education re assistive Equipment, Education re Diagnosis, Home Program - Visit Plan Frequency: 2-3x /Week Duration: 4 Weeks General Plan: initiate use of counter force brace. ice/heat PRN. forearm stretch elbow at 90* and straight. modalities US/cupping etc. scapula/postural strengthening. radial nerve glides TEXT: Thank you for the opportunity to evaluate your patient. For Medicare and Medicare HMO plans, please review the plan of care and approve it. It will need to be FAXED BACK to us at [phone] for Medicare purposes. Please let me know if there are questions or concerns regarding this plan of care. Physician Signature: Date:___
== END 2022-06-19 19:00 | disposition home or self-care (01) ==
LOC: OT 15:30
PROVIDERS: PCP Nurse Practitioner Family; Referring Provider Nurse Practitioner Family; Visit Provider Nurse Practitioner Family
DX: E66.9 Obesity, unspecified (principal); M77.8 Other enthesopathies, not elsewhere classified; I10 Essential (primary) hypertension; Z71.82 Exercise counseling; Z68.34 Body mass index [BMI] 34.0-34.9, adult
CPT/HCPCS: 97035; 97110; 97140; 97166; 97530

== ENCOUNTER → 2022-10-01 | Outpatient (CLI) | payer BC, SELFPAY ==
[2022-10-01 10:10] LABS: Hematocrit 40.9 % (37-47); Mean Corp Hgb Conc 31.8 g/dL (32-36); Mean Corpuscular Hgb 29.7 pg (27.0-32.0); Mean Corpuscular Volume 93.4 fL (81-99); Mean Platelet Vol. 10.1 fl (6.2-12.0); Platelet Count 326 K/mm3 (150-450); RBC Distribution Width CV 12.7 % (11.6-14.6); RBC Distribution Width SD 43.7 fl (35.1-43.9); Red Blood Count 4.38 M/mm3 (4.2-5.4); White Blood Count 5.2 K/mm3 (4.4-11.0)
[2022-10-01 10:43] LABS: ALB/GLOB Ratio 0.8 RATIO (0.9-2.4); AST(SGOT) 13 U/L (15-37); Alanine Aminotransfer ALT/SGPT 23 U/L (13-56); Albumin, Serum 3.5 g/dL (3.2-5.0); Alkaline Phosphatase 85 U/L (45-117); Anion Gap 5 (5-15); BUN 9 mg/dL (7-18); BUN/Creat Ratio 15.2 RATIO (10-20); Calcium,Total 8.7 mg/dL (8.5-10.1); Chloride 110 mmol/L (98-107); Cholesterol 223 mg/dL (200); Creatinine, Serum 0.59 mg/dL (0.55-1.02); EST Glomerular Filtration Rate 113 mL/min (>60); Est Glom Filt Rate - Afr Amer 137 mL/min (>60); Globulin 4.2 g/dL (2.2-4.2); Glucose 88 mg/dL (74-106); High Density Lipoprotein 74 mg/dL; Potassium 4.2 mmol/L (3.5-5.1); Protein, Total 7.7 g/dL (6.4-8.2); Sodium Level 142 mmol/L (136-145); Triglycerides 91 mg/dL; Very Low Density Lipoprotein 18 mg/dL (5-40)
== END | disposition home or self-care (01) ==
PROVIDERS: PCP Nurse Practitioner Family; Referring Provider Nurse Practitioner Family; Visit Provider Nurse Practitioner Family
DX: Z00.00 Encounter for general adult medical examination without abnormal findings (principal); I10 Essential (primary) hypertension; E78.5 Hyperlipidemia, unspecified
CPT/HCPCS: 36415; 80053; 80061; 85027

== ENCOUNTER → 2023-01-19 | Outpatient (CLI) | payer BC, SELFPAY ==
--- NOTE | 2023-01-19 14:19 | BI_ITS ---
MAMMOGRAPHY - BILATERAL DIAGNOSTIC REASON FOR EXAM: Female, 52 years old. MASS OF RIGHT BREAST PERTINENT HISTORY: Non-contributory. TECHNIQUE: Digital examination. Mediolateral oblique (MLO) and craniocaudad (CC) views of both breasts were obtained. CAD: CAD was performed on this study. COMPARISON: None. FINDINGS: Breast Composition: There are scattered areas of fibroglandular density. There are no dominant masses or suspicious calcifications. No other significant abnormalities are identified. BI/DIAG MAMM W/CAD, BILAT IMPRESSION: Stable bilateral diagnostic mammogram. Ultrasound of the palpable abnormality in the upper outer quadrant right breast will be obtained. ASSESSMENT CATEGORY: BIRADS Category 0: Incomplete. Need additional imaging evaluation. A letter regarding these results will be sent to the patient by the facility within 30 days. FOLLOW UP RECOMMENDATION: Ultrasound Recommended. (I) Approximately 10% of breast cancers are not detected by mammography. A normal mammogram should not delay biopsy of a clinically suspicious abnormality. Electronically Signed: Tone Castillo MD at 15:16 EST ,
--- NOTE | 2023-01-19 14:25 | US_ITS ---
STUDY: ULTRASOUND BREAST - RIGHT REASON FOR EXAM: Female, 52 years old. Palpable lump TECHNIQUE: Axial and longitudinal images of the RIGHT breast were performed with a high resolution ultrasound transducer. # OF IMAGES: 27 COMPARISON: None. FINDINGS: RIGHT Breast: Focused sonographic evaluation of the right breast in the lower outer quadrant was performed. There is a subcutaneous poorly defined predominantly hyperechoic likely hematoma or fat necrosis or other sequela of previous reduction surgery There is no suspicious shadowing solid lesion, architectural distortion or suspicious clustered calcifications. No suspicious axillary adenopathy US/Breast Limited Unilateral IMPRESSION: Palpable lump corresponds to a subcutaneous mass measuring 2.8 x 2.9 x 1 cm. This likely represents a hematoma or fat necrosis or other sequela of trauma. There is no suspicious shadowing mass or nodule. Follow-up recommended to ensure resolution ASSESSMENT CATEGORY: BIRADS Category 3: Probably Benign - Short-Interval Follow-up Suggested. A letter regarding these results will be sent to the patient by the facility within 30 days. Electronically Signed: Juan Yi MD at 9:55 EST ,
== END | disposition home or self-care (01) ==
LOC: OPBI 14:15
PROVIDERS: PCP Nurse Practitioner Family; Referring Provider Nurse Practitioner Family; Visit Provider Nurse Practitioner Family
DX: N63.10 Unspecified lump in the right breast, unspecified quadrant (principal)
CPT/HCPCS: 76642; 77062; 77066; G0279

== ENCOUNTER → 2023-06-11 | Outpatient (CLI) | payer BC, SELFPAY ==
[2023-06-11 10:18] LABS: Hematocrit 41.4 % (37-47); Hemoglobin 12.8 g/dL (12.0-15.0); Mean Corp Hgb Conc 30.9 g/dL (32-36); Mean Corpuscular Hgb 28.8 pg (27.0-32.0); Mean Platelet Vol. 10.3 fl (6.2-12.0); Platelet Count 293 K/mm3 (150-450); RBC Distribution Width SD 43.9 fl (35.1-43.9); Red Blood Count 4.45 M/mm3 (4.2-5.4); White Blood Count 5.2 K/mm3 (4.4-11.0)
[2023-06-11 11:06] LABS: ALB/GLOB Ratio 0.9 RATIO (0.9-2.4); AST(SGOT) 16 U/L (15-37); Alanine Aminotransfer ALT/SGPT 22 U/L (13-56); Albumin, Serum 3.6 g/dL (3.2-5.0); Alkaline Phosphatase 80 U/L (45-117); Anion Gap 5 (5-15); BUN 15 mg/dL (7-18); BUN/Creat Ratio 21.3 RATIO (10-20); Calcium,Total 9.2 mg/dL (8.5-10.1); Chloride 110 mmol/L (98-107); Cholesterol 255 mg/dL (200); EST Glomerular Filtration Rate 92 mL/min (>60); Est Glom Filt Rate - Afr Amer 111 mL/min (>60); Globulin 4.1 g/dL (2.2-4.2); Glucose 86 mg/dL (74-106); High Density Lipoprotein 76 mg/dL; Potassium 3.9 mmol/L (3.5-5.1); Protein, Total 7.7 g/dL (6.4-8.2); Sodium Level 142 mmol/L (136-145); Triglycerides 151 mg/dL; Very Low Density Lipoprotein 30 mg/dL (5-40)
== END | disposition home or self-care (01) ==
LOC: MTLAB 07:36
PROVIDERS: PCP Nurse Practitioner Family; Referring Provider Nurse Practitioner Family; Visit Provider Nurse Practitioner Family
DX: Z00.00 Encounter for general adult medical examination without abnormal findings (principal)
CPT/HCPCS: 36415; 80053; 80061; 85027

== ENCOUNTER → 2023-06-15 | Outpatient (CLI) | payer BC, SELFPAY ==
--- NOTE | 2023-06-15 09:02 | RAD_ITS ---
INDICATION: INJURY EXAMINATION/TECHNIQUE: X-RAY - RIGHT XR Foot Min 3 Views 3 VIEWS COMPARISON: No relevant prior comparison study available FINDINGS: SOFT TISSUES: No soft tissue swelling or gas. No radiopaque foreign body. BONES/JOINTS: There is a nonsignificantly displaced fracture within the diaphysis of the fifth proximal phalanx. No intra-articular involvement is visualized. There are degenerative changes of the first metatarsophalangeal joint. No sclerotic or destructive changes observed. RAD/Foot min 3 Views IMPRESSION: Fifth proximal phalanx fracture. First MTP degenerative changes. Electronically Signed: Tory Gomes MD at 9:17 EDT ,
== END | disposition home or self-care (01) ==
LOC: MTRAD 08:56
PROVIDERS: PCP Nurse Practitioner Family; Referring Provider Nurse Practitioner Family; Visit Provider Nurse Practitioner Family
DX: S99.921A Unspecified injury of right foot, initial encounter (principal)
CPT/HCPCS: 73630

== ENCOUNTER 2024-02-29 08:30 | Outpatient (RCR) | payer BC, SELFPAY ==
--- NOTE | 2023-12-30 17:57 | HP.PTEVAL_ITS ---
Patient's Visit Information Visit Information Visit Information: YAEL JOHNSON is a 53 year old F referred to Physical Therapy by Dr. Irvin Valadez DO with a diagnosis of L knee pain. Date of Evaluation: 12/30/23 Physical Therapist: JOSIAH Tan Visit Plan Frequency: 2x /Week Duration: 2 Months Plan: 2X/ week 8 weeks for L knee AROM, AAROM, gait training, strengthening, Edema control with HEP HEP: Heel slides and Quad sets Subjective Subjective: Pt reports that her L knee has been bothering her for [address] Valadez today and he said that he wants anti-inflamm and PT. She has been on crutches since last weekend. She goes back to work on Thursday. She has never had a cortisone shot in her knees. She had an x-ray and that was negative. will do an MRI if PT does not help. She has throbbing pain on the lateral side of her knee and behind her knee. She has to go up and down steps one at a time. She can not lay on her L side. Pain L knee pain: Pain Intensity (Out of 10): 5 Objective Objective: Gait: walks with 2 crutches with toe touch weight bearing on the L LE Knee AROM: R 0-133 degrees flexion L -8 to 95 degrees flexion R mid patella 38 and L mid patella 39.1 R knee ext 21.3 and L 6.5 R knee flex 11.6 and L 5.1 Balance/Special Test Scores Lower Extremity Functional Score: 22 Goals Goal 1:: I HEP Goal Time Frame: 6-8 Weeks Goal 2:: Increase L knee AROM (At time of the eval: R 0-133 degrees flexion L -8 to 95 degrees flexion) Goal Time Frame: 6-8 Weeks Goal 3:: Be able to walk with no antalgic gait Goal Time Frame: 6-8 Weeks Goal 4:: Be able to go up and down the steps recip with 1 hand rail Goal Time Frame: 6-8 Weeks Anticipated Interventions Patient/Client Instruction: Educate patient on: Condition and Plan of Care For the Purpose of:: To decrease pain, To decrease swelling/inflammation, To increase ROM, To improve nutrient delivery to tissue, To improve muscle performance and motor function, To improve ability to perform ADL's, To improve performance and independence with ADL's, To decrease level of supervision to per form tasks, To improve ability of physical actions for home/community/work/leisure, To improve gait and locomotor functions, To improve health of tissue, To decrease soft tissue restriction, To increase flexibility/ROM, To improve endurance, To improve balance and To improve safety with gait Therapeutic Exercise to Include: Strength training, Endurance training, Postural training, Flexibilty training, Gait and locomotor training, Neuromotor development, Passive ROM and Active ROM For the Purpose of:: To decrease pain, To decrease swelling/inflammation, To increase ROM, To improve nutrient delivery to tissue, To improve muscle performance and motor function, To improve ability to perform ADL's, To increase tolerance to activity/condition/position, To improve performance and independence with ADL's, To decrease level of supervision to perform tasks, To improve ability of physical actions for home/community/work/leisure, To improve gait and locomotor functions, To improve health of tissue, To decrease soft tissue restriction and To increase flexibility/ROM Functional Training to Include: Gait training For the Purpose of:: To improve gait and locomotor functions Manual Therapy Techniques to Include: Passive ROM and Soft tissue mobilization For the Purpose of:: To decrease pain, To increase ROM, To improve nutrient delivery to tissue, To improve muscle performance and motor function, To improve ability to perform ADL's, To improve gait and locomotor functions, To improve health of tissue, To decrease soft tissue restriction and To increase flexibility/ROM IF ES: Yes Cryotherapy (ice pack, ice massage): Yes Thermo therapy (hot pack): Yes For the Purpose of:: To decrease pain, To decrease swelling/inflammation, To increase ROM, To improve nutrient delivery to tissue, To improve muscle performance and motor function, To improve ability to perform ADL's, To increase tolerance to activity/condition/position, To decrease level of supervision to perform tasks, To improve ability of physical actions for home/community/work/leisure, To improve gait and locomotor functions, To improve health of tissue, To decrease soft tissue restriction and To increase flexibility/ROM Text: Thank you for the opportunity to evaluate your patient. For Medicare and Medicare HMO plans, please review the plan of care and approve it. It will need to be FAXED BACK to us at [phone] for Medicare purposes. For Medicare only, by signing this I certify the plan of care. Please let me know if there are questions or concerns regarding this plan of care. Physician Signature: Date:
--- NOTE | 2024-02-01 15:53 | HP.PTREVAL_ITS ---
Re-Evaluation Intro: Dr. Irvin Valadez, DO, It has been my pleasure to treat YAEL JOHNSON over the last 10 visits for L knee pain. Please see the progress note below for an update on the physical therapy plan of care! Subjective Subjective: Pt was doing great and off the crutches and no icing and then Yesterday, last night and this morning she had pain under her knee cap but now she has no pain just tightness. She sees the Dr next Thursday. She stopped her anti-inflamm pills two days ago or so. She walked for 10 min and then she had to stop (she was going slow and no grade) Objective Objective/Function: Question is why was she doing so well and now she is flared up again? R 0-133 degrees flexion L knee AROM: -2 to 131 Gait: walks with decrease heel to toe gait pattern on the R with bent knee and decreased stance time on the R Stairs: struggles to ascend the steps using her R leg first and a railing and does not want to bend the R knee with descending the steps and almost hops down on the L knee with 2 hand rails. Plan Plan Plan: Hold chart until after appt. Sees on Thursday Balance/Gait/Functional tests Balance/Special Test Scores Lower Extremity Functional Score: 47 Goals Goals Goal 1:: I HEP Goal Time Frame: 6-8 Weeks Goal Progress: Goal Met Goal 2:: Increase L knee AROM (At time of the eval: R 0-133 degrees flexion L -8 to 95 degrees flexion) Goal Time Frame: 6-8 Weeks Goal 3:: Be able to walk with no antalgic gait Goal Time Frame: 6-8 Weeks Goal 4:: Be able to go up and down the steps recip with 1 hand rail Goal Time Frame: 6-8 Weeks Anticipated Interventions Anticipated Interventions Patient/Client Instruction: Educate patient on: Condition and Plan of Care For the Purpose of:: To decrease pain, To decrease swelling/inflammation, To increase ROM, To improve nutrient delivery to tissue, To improve muscle performance and motor function, To improve ability to perform ADL's, To improve performance and independence with ADL's, To decrease level of supervision to perform tasks, To improve ability of physical actions for home/community/work/leisure, To improve gait and locomotor functions, To improve health of tissue, To decrease soft tissue restriction, To increase flexibility/ROM, To improve endurance, To improve balance and To improve safety with gait Therapeutic Exercise to Include: Strength training, Endurance training, Postural training, Flexibilty training, Gait and locomotor training, Neuromotor development, Passive ROM and Active ROM For the Purpose of:: To decrease pain, To decrease swelling/inflammation, To increase ROM, To improve nutrient delivery to tissue, To improve muscle pe rformance and motor function, To improve ability to perform ADL's, To increase tolerance to activity/condition/position, To improve performance and independence with ADL's, To decrease level of supervision to perform tasks, To improve ability of physical actions for home/community/work/leisure, To improve gait and locomotor functions, To improve health of tissue, To decrease soft tissue restriction and To increase flexibility/ROM Functional Training to Include: Gait training For the Purpose of:: To improve gait and locomotor functions Manual Therapy Techniques to Include: Passive ROM and Soft tissue mobilization For the Purpose of:: To decrease pain, To increase ROM, To improve nutrient delivery to tissue, To improve muscle performance and motor function, To improve ability to perform ADL's, To improve gait and locomotor functions, To improve health of tissue, To decrease soft tissue restriction and To increase flexibility/ROM IF ES: Yes Cryotherapy (ice pack, ice massage): Yes Thermo therapy (hot pack): Yes For the Purpose of:: To decrease pain, To decrease swelling/inflammation, To increase ROM, To improve nutrient delivery to tissue, To improve muscle performance and motor function, To improve ability to perform ADL's, To increase tolerance to activity/condition/position, To decrease level of supervision to perform tasks, To improve ability of physical actions for home/community/wor k/leisure, To improve gait and locomotor functions, To improve health of tissue, To decrease soft tissue restriction and To increase flexibility/ROM Re-Evaluation Ending Re-evaluation ending: Please do not hesitate to contact me at [phone] by phone or if you have questions or concerns regarding this new plan of care! Sincerely, JOSIAH Tan
--- NOTE | 2024-02-29 08:48 | HP.PTDCSUM ---
Discharge Summary D/C summary: It has been my pleasure to treat YAEL JOHNSON referred by Dr. Irvin Valadez DO, with the diagnosis of L knee pain for a total of 15 visit(s). Discharge Date: 02/29/24 Please see the following information for a summary of their discharge status. Subjective Subjective: Pt reports that she is still on anti-inflammatory and that does help. She can tell when it wares off. She still feels that something is not right. She has no pain in sitting. She has pain and pressure on the inside of the knee with walking on it. She has 5 anti-inflammatory pills left and she will make an appt with . She still can not go up and down stairs recip. Going down is the worst. She has not noticed much swelling as of right now. Pain L knee pain: Pain Intensity (Out of 10): 0 Overall Improvement % Improvement: 85 Objective Objective/Function: Palpation: Tender along the L medial joint line of the knee. Gait: walks with decrease stance time on the L LE and decrease stride length on the L L knee AROM: -2 to 129 degrees flexion Stairs: Up and down recip with 2 hand rails (she really has to drive through her L LE to get up the step (weakness present) and has a very hard time bending the L knee descending the steps with increase pain Goals Goal 1:: I HEP Goal Progress: Goal Met Goal 2:: Increase L knee AROM (At time of the eval: R 0-133 degrees flexion L -8 to 95 degrees flexion) Goal Progress: Goal Met Goal 3:: Be able to walk with no antalgic gait Goal Progress: Progressing Goal 4:: Be able to go up and down the steps recip with 1 hand rail Goal Progress: Not Progressing Plan Plan: MEG PT back to for re-eval/further diagmostics. D/C Information Discharge Comments: MEG PT back to d/c sentence: If there are questions or concerns regarding this patient's physical therapy, please feel free to call me at [phone]. Thank you for the referral of this patient. Sincerely, Octavia Hernandez, MPT Balance/Gait/Functional tests Balance/Special Test Scores Lower Extremity Functional Score: 56 Improvement % Improvement: 85
== END 2024-02-29 08:57 | disposition home or self-care (01) ==
LOC: PT 08:30
PROVIDERS: PCP Nurse Practitioner Family; Referring Provider Orthopaedic Surgery; Visit Provider Orthopaedic Surgery
DX: M25.562 Pain in left knee (principal)
CPT/HCPCS: 97014; 97110; 97161; 97530; G0283

== ENCOUNTER → 2024-03-22 | Outpatient (CLI) | payer BC, SELFPAY ==
--- NOTE | 2024-03-22 13:16 | MRI_ITS ---
STUDY: MRI LEFT KNEE REASON FOR EXAM: Female, 53 years old. Left knee pain started 11/2023. TECHNIQUE: Standardized fat and water weighted pulse sequences were obtained in all 3 orthogonal planes. COMPARISON: Left knee radiographs dated 12/30/2023. FINDINGS: Normal medial meniscus. There is a suspected small subchondral trabecular stress fracture of the medial femoral condyle with adjacent marrow edema (coronal T2 series 10 images 14-16). Normal hyaline cartilage of the medial femorotibial compartment. Normal medial tibial plateau. There is a mild grade I MCL sprain with periligamentous edema (coronal T2 series 10 images 15-16). Normal distal semimembranosus, gracilis and semitendinosus tendons. Normal lateral meniscus. Normal hyaline cartilage of the lateral femorotibial compartment. Normal lateral tibial plateau. There is mild subchondral marrow edema along the posterior nonweightbearing surface of the lateral femoral condyle (sagittal T2 series 7 images 17-18). Normal proximal tibiofibular articulation. Normal lateral collateral (fibular) ligament. Normal popliteus tendon. Normal biceps femoris tendon. Normal anterior cruciate ligament (ACL). Normal posterior cruciate ligament (PCL). Normal congruent patellofemoral articulation. Normal hyaline cartilage of the patellofemoral compartment. Normal medial and lateral patellar retinaculum. Normal quadriceps tendon. Normal patellar tendon. Normal Hoffa''s fat pad. There is a small joint effusion. There is a small popliteal cyst. There is mild subcutaneous soft tissue edema along the anterior aspect of the knee. MRI/Lower Ext Joint Only (Routine) IMPRESSION: Suspected small subchondral trabecular stress fracture of the medial femoral condyle. Mild grade I MCL sprain. Mild subchondral marrow edema along the posterior nonweightbearing surface of the lateral femoral condyle. Small joint effusion with a small popliteal cyst. Mild subcutaneous soft tissue edema along the anterior aspect of the knee. No discrete meniscal tear. Electronically Signed: Hudson Lopez MD at 15:39 EST ,
== END | disposition home or self-care (01) ==
PROVIDERS: PCP Nurse Practitioner Family; Referring Provider Orthopaedic Surgery; Visit Provider Orthopaedic Surgery
DX: M25.562 Pain in left knee (principal)
CPT/HCPCS: 73721

== ENCOUNTER → 2024-04-02 | Outpatient (CLI) | payer BC, SELFPAY ==
[2024-04-02 09:50] LABS: Hematocrit 38.4 % (37-47); Hemoglobin 12.3 g/dL (12.0-15.0); Mean Corpuscular Hgb 29.5 pg (27.0-32.0); Mean Corpuscular Volume 92.1 fL (81-99); Mean Platelet Vol. 9.2 fl (6.2-12.0); Platelet Count 335 K/mm3 (150-450); RBC Distribution Width CV 13.2 % (11.6-14.6); RBC Distribution Width SD 44.4 fl (35.1-43.9); Red Blood Count 4.17 M/mm3 (4.2-5.4); White Blood Count 4.4 K/mm3 (4.4-11.0)
[2024-04-02 10:44] LABS: ALB/GLOB Ratio 0.9 RATIO (0.9-2.4); AST(SGOT) 21 U/L (15-37); Alanine Aminotransfer ALT/SGPT 35 U/L (13-56); Albumin, Serum 3.6 g/dL (3.2-5.0); Alkaline Phosphatase 77 U/L (45-117); Anion Gap 4 (5-15); BUN 12 mg/dL (7-18); BUN/Creat Ratio 17.3 RATIO (10-20); Calcium,Total 8.8 mg/dL (8.5-10.1); Chloride 109 mmol/L (98-107); Cholesterol 220 mg/dL (200); Creatinine, Serum 0.69 mg/dL (0.55-1.02); EST Glomerular Filtration Rate 94 mL/min (>60); Est Glom Filt Rate - Afr Amer 113 mL/min (>60); Globulin 3.9 g/dL (2.2-4.2); Glucose 88 mg/dL (74-106); High Density Lipoprotein 80 mg/dL; Potassium 4.1 mmol/L (3.5-5.1); Protein, Total 7.5 g/dL (6.4-8.2); Sodium Level 142 mmol/L (136-145); Triglycerides 97 mg/dL; Very Low Density Lipoprotein 19 mg/dL (5-40)
== END | disposition home or self-care (01) ==
PROVIDERS: PCP Nurse Practitioner Family; Referring Provider Nurse Practitioner Family; Visit Provider Nurse Practitioner Family
DX: Z00.00 Encounter for general adult medical examination without abnormal findings (principal); I10 Essential (primary) hypertension; E78.5 Hyperlipidemia, unspecified
CPT/HCPCS: 36415; 80053; 80061; 85027

== ENCOUNTER → 2024-11-29 | Outpatient (CLI) | payer BC, SELFPAY ==
[2024-11-29 10:22] LABS: Hematocrit 39.7 % (37-47); Hemoglobin 12.6 g/dL (12.0-15.0); Mean Corp Hgb Conc 31.7 g/dL (32-36); Mean Corpuscular Volume 92.3 fL (81-99); Mean Platelet Vol. 9.9 fl (6.2-12.0); Platelet Count 309 K/mm3 (150-450); RBC Distribution Width CV 13.0 % (11.6-14.6); RBC Distribution Width SD 43.8 fl (35.1-43.9); Red Blood Count 4.30 M/mm3 (4.2-5.4); White Blood Count 6.0 K/mm3 (4.4-11.0)
[2024-11-29 11:08] LABS: AST(SGOT) 19 U/L (<=31); Alanine Aminotransfer ALT/SGPT 25 U/L (<=34); Albumin, Serum 4.1 g/dL (3.5-5.0); Alkaline Phosphatase 91 U/L (35-104); Anion Gap 11 (5-15); BUN 10 mg/dL (4-19); BUN/Creat Ratio 14.3 RATIO (10-20); Calcium,Total 9.0 mg/dL (7.6-11.0); Carbon Dioxide 24.5 mmol/L (21.0-32.0); Chloride 105 mmol/L (98-108); Cholesterol 226 mg/dL (<=200); Globulin 3.2 g/dL (2.2-4.2); Glucose 90 mg/dL (70-99); Low Density Lipoprotein Calc. 116 mg/dL; Potassium 4.1 mmol/L (3.3-5.1); Triglycerides 198 mg/dL; Very Low Density Lipoprotein 40 mg/dL (5-40); cholesterol:hdl ratio screen 3.23
== END | disposition home or self-care (01) ==
LOC: MTLAB 07:40
PROVIDERS: PCP Nurse Practitioner Family; Referring Provider Nurse Practitioner Family; Visit Provider Nurse Practitioner Family
DX: Z00.00 Encounter for general adult medical examination without abnormal findings (principal); I10 Essential (primary) hypertension; E78.5 Hyperlipidemia, unspecified
CPT/HCPCS: 36415; 80053; 80061; 85027

== ENCOUNTER 2024-12-27 07:40 | Emergency (ER) | payer BC, SELFPAY ==
[2024-12-27 07:41] VITALS: BP 168/89; PULSE 82; RESP 18; TEMP 37.1; O2SAT 100; BMI 33.8
--- NOTE | 2024-12-27 07:52 | RAD_ITS ---
PROCEDURE: RAD/Chest 1 View (Portable)
--- NOTE | 2024-12-27 07:53 | EX.ED.DYSGE1 ---
HPI History of Present Illness Chief Complaint: Hypertension Detail of Chief Complaint: Hypertension and not feeling well Informant: patient Narrative Narrative: Patient presents to the emergency department with complaint of not feeling well. She states that she woke up around 3 AM and noted some intermittent fluttering in her chest. She noticed some discomfort into her left jaw. Denies chest pain or pressure or heaviness. She has had that fluttering in the past it was just more pronounced today. She feels kind of foggy and she felt like she woke up maybe a little bit sweaty but was not sure if it was related to menopause symptoms. Denies recent illness. Denies fever or cough. She has no heart history. She does have history of hypertension and she did take her blood pressure and it was in the 150s over 80s at home and when she went to work her blood pressure was in the 140s over low 100s. She does take losartan 100 mg daily. [facility] Medical History (Updated 12/27/24 @ 10:[address] Vilma Garces, DO) Non-smoker Migraines High cholesterol Seasonal allergies HTN (hypertension) Home Medications ?Medication ?Instructions ?Recorded ?Last Taken ?Type multivitamin 1 tab PO DAILY 01/21/21 Unknown History losartan 50 mg tablet 100 mg PO DAILY 01/20/22 Unknown History acetaminophen 325 mg capsule 325 mg PO ONCE PRN pain 12/30/23 Unknown History (Tylenol) ibuprofen 200 mg capsule (Motrin 200 mg PO Q6H PRN fever or pain 12/30/23 Unknown History IB) Allergy/AdvReac Type Severity Reaction Status Date / Time No Known Allergies Allergy Verified 12/27/24 07:41 Family History Father Heart disease Surgical History (Updated 12/27/24 @ 08:08 by Toyin Polanco) Hx of CABG No history of previous surgery Hx of breast reduction, elective Social History Smoking Status: Never smoker alcohol intake: current details: 2-3 daily substance use type: does not use what type of physical activity do you participate in: other frequency: 3-4 times per week ROS ROS ED Review of Systems ROS Unobtainable: other Constitutional Constitutional ED: Reports lethargy; Denies chills, fever(s), sweats or weight loss Eyes Eyes: Denies blurry vision, change in vision or diplopia ENT ENT ED: Reports other Details: Left jaw pain ; Denies rhinorrhea or sore throat Cardiovascular Cardiovascular: Reports chest pain and palpitations; Denies orthopnea or racing heartbeat Respiratory/Chest Respiratory/Chest: Denies cough, dyspnea, dyspnea on exertion, orthopnea or sputum Gastrointestinal Gastrointestinal: Denies abdominal pain, diarrhea, nausea or vomiting Genitourinary Genitourinary ED: Denies dysuria, hematuria or urinary frequency Musculoskeletal Musculoskeletal: Denies arthralgias, back pain, myalgias or neck pain Integumentary Denies abscess, Abrasions or rash Neurologic Neurologic: Denies headache(s) or weakness Psychiatric Psychiatric: Denies anxiety, depression or suicidal thoughts Endocrine Endocrinology: Denies polydipsia, polyphagia or polyuria Hematologic/Lymphatic Hematologic/Lymphatic: Denies easy bleeding, easy bruising or lymphadenopathy Allergic/Immunologic Allergic/Immunologic ED: Denies mouth swelling, tongue swelling or urticaria EXAM Physical Exam Const Vital Signs: 12/27/24 07:41 12/27/24 08:04 12/27/24 08:09 Temperature 98.7 F Temperature Source Oral Pulse Rate 82 Respiratory Rate 18 Respiratory Pattern Normal Blood Pressure 168/89 H Blood Pressure Mean 115 Pulse Ox 100 Oxygen Delivery Method Room Air Room Air 12/27/24 08:40 12/27/24 08:59 12/27/24 09:50 Temperature Temperature Source Pulse Rate 72 71 69 Respiratory Rate 17 18 Respiratory Pattern Blood Pressure 128/75 H 129/77 H 124/90 H Blood Pressure Mean 92 94 101 Pulse Ox 100 100 100 Oxygen Delivery Method Room Air Room Air 12/27/24 10:30 Temperature 98.0 F Temperature Source Pulse Rate 73 Respiratory Rate 16 Respiratory Pattern Blood Pressure 129/75 H Blood Pressure Mean 93 Pulse Ox 100 Oxygen Delivery Method Positive well nourished and well developed General Appearance ED: well developed and NAD HEENT Reports TM's clear and moist mucous membranes HEENT Narrative: Dentition-no tenderness to the left lower teeth. No abscesses noted. Left TM clear. Right TM clear. normocephalic and atraumatic; Negative for trauma or tenderness Tympanic Membrane ED: Yes TM's clear Eyes PERRL and EOMs intact bilaterally General Eye ED: Negative for pale conjunctiva or scleral icterus Neck no lymphadenopathy, supple and no JVD General: Negative for tenderness Chest Wall inspection of chest normal and palpation of chest normal Chest: Negative for tenderness Resp normal respiratory effort and clear to auscultation bilaterally Effort and Inspection: Negative for respiratory distress or pain with movement Auscultation: Negative for rhonchi, wheezes or diminished lung sounds Cardio regular rate, regular rhythm, S1 normal heart sound, S2 normal heart sound and no murmurs Peripheral Pulses: pulses 2+ throughout GI normal to inspection, nondistended, normoactive bowel sounds, soft to palpation, non-tender, non-distended and no masses Back/Spine no CVA tenderness and no thoracic nor lumbar tenderness Extremity normal to inspection General Extremety ED: Negative for edema General Extremity: Negative for edema Neuro oriented x3, CN's II-XII intact bilaterally, no sensory deficits noted and gait normal Sensorium / Orientation: awake, alert, oriented to person, oriented to place and oriented to time Motor Exam: strength 5/5 throughout and strength abnormal Psych mental status grossly normal Skin no rashes or lesions noted and no wounds MDM MDM MDM Narrative Medical decision making narrative: Patient presents with a complaint of not feeling well and some discomfort into the left side of the face/jaw. Some palpitations. Elevated blood pressure today. No heart history. EKG obtained arrival shows sinus rhythm with rate of 72 bpm with occasional PACs. CBC with differential showed a white count of 5.7 hemoglobin 13.5 and platelet count of 289. Chemistries unremarkable. First troponin was normal at 7. 2-hour delta troponin also normal at less than 6. Very low index of suspicion for acute coronary syndrome. Her blood pressure normalized without any treatment and now systolic in the 120s with diastolic in the 70s. She clinically looks well. Will discharge to home in stable condition. Advised to return if chest pain, exertional dyspnea, or condition worsen anyway Lab Data Attestation: I reviewed the patient's lab results. Labs: Laboratory Results - last 24 hr 12/27/24 12/27/24 07:55 09:46 WBC 5.7 RBC 4.49 Hgb 13.5 Hct 40.8 MCV 90.9 MCH 30.1 MCHC 33.1 RDW Std Deviation 42.5 RDW Coeff of Ani 12.9 Plt Count 289 MPV 9.4 Immature Gran % (Auto) 0.400 Neut % (Auto) 59.5 Lymph % (Auto) 29.0 [place] % (Auto) 7.4 Eos % (Auto) 2.5 Baso % (Auto) 1.2 H Absolute Neuts (auto) 3.4 Absolute Lymphs (auto) 1.65 Nucleated RBC % 0 Sodium 142 Potassium 4.3 Chloride 104 Carbon Dioxide 26.1 Anion Gap 11 BUN 11 Creatinine 0.63 L Estim Creat Clear Calc 101.34 Est GFR (MDRD) Non-Af 105 BUN/Creatinine Ratio 17.1 Glucose 123 H Calcium 9.0 Troponin T High Sens 7 Troponin T Hi Sens 2 Hr < 6 Radiography Diagnostic Testing: Clinical Impression(s) from Imaging Studies Chest X-Ray 12/27/24 07:52 IMPRESSION: Lungs appear clear throughout. No pleural effusion or pneumothorax is noted. The cardiomediastinal silhouette is within the normal range. [id number] acromioclavicular joint degenerative changes are seen. No acute osseous changes evident. No evidence of acute cardiopulmonary disease. Reading Location: [place] [id number] EKG Initial EKG: Attestation: I personally reviewed and interpreted this EKG as follows: Comments: Sinus rhythm with rate of 72 bpm with occasional PACs. Discharge Plan Triage Chief Complaint: Hypertension ED Provider: Vilma Garces Dx/Rx/DC Orders Clinical Impression: Hypertension Instructions: ED Hypertension, Established Prescriptions: No Action multivitamin Tablet 1 tab PO DAILY ibuprofen [Motrin IB] 200 mg capsule 200 mg PO Q6H PRN (Reason: fever or pain) acetaminophen [Tylenol] 325 mg capsule 325 mg PO ONCE PRN (Reason: pain) losartan 50 mg tablet 100 mg PO DAILY Patient Comments: TAKE 1 TABLET BY MOUTH EVERY DAY Primary Care Provider: Susi Booth NP Referrals: Susi Booth NP, [employer] [Primary Care Provider, Family Practice] - 3-5 Days Print Language: Telugu Disposition Disposition: Home, Self Care
[2024-12-27] MEDS: 0.9% Normal Saline (1000mL) 1,000 ML 150 ML IV (08:01)
[2024-12-27 08:06] LABS: Hematocrit 40.8 % (37-47); Hemoglobin 13.5 g/dL (12.0-15.0); Immature Granulocytes Count 0.020 X10^3/uL (0.0-0.0); Mean Corp Hgb Conc 33.1 g/dL (32-36); Mean Corpuscular Volume 90.9 fL (81-99); Mean Platelet Vol. 9.4 fl (6.2-12.0); NRBC Flagged by Analyzer 0 % (0-5); Platelet Count 289 K/mm3 (150-450); RBC Distribution Width CV 12.9 % (11.6-14.6); RBC Distribution Width SD 42.5 fl (35.1-43.9); Red Blood Count 4.49 M/mm3 (4.2-5.4); White Blood Count 5.7 K/mm3 (4.4-11.0)
[2024-12-27 08:27] LABS: Troponin T High Sensitivity 7 ng/L (<=14)
[2024-12-27 08:40] VITALS: BP 128/75; PULSE 72; RESP 17; O2SAT 100
[2024-12-27 08:44] LABS: Anion Gap 11 (5-15); BUN 11 mg/dL (4-19); BUN/Creat Ratio 17.1 RATIO (10-20); Calcium,Total 9.0 mg/dL (7.6-11.0); Carbon Dioxide 26.1 mmol/L (21.0-32.0); Chloride 104 mmol/L (98-108); Estimated Creatinine Clearance 101.34 ml/min (50-250); Glucose 123 mg/dL (70-99); Potassium 4.3 mmol/L (3.3-5.1)
[2024-12-27 08:59] VITALS: BP 129/77; PULSE 71; RESP 18; O2SAT 100
[2024-12-27 09:50] VITALS: BP 124/90; PULSE 69; O2SAT 100
[2024-12-27 10:30] VITALS: BP 129/75; PULSE 73; RESP 16; TEMP 36.7; O2SAT 100
[2024-12-27 10:32] LABS: Troponin T High Sens 2 HR < 6 ng/L (<=14)
== END 2024-12-27 10:56 | disposition home or self-care (01) ==
PROVIDERS: Emergency Provider Emergency Medicine; PCP Nurse Practitioner Family; Visit Provider Emergency Medicine
DX: I10 Essential (primary) hypertension (principal); Z79.899 Other long term (current) drug therapy; E78.00 Pure hypercholesterolemia, unspecified; R07.9 Chest pain, unspecified
CPT/HCPCS: 71045; 80048; 84484; 85025; 93005; 96360; 96361; 99284; A4216